=== PATIENT | female | born 1960 | race American Indian/Alaskan Native ===

== ENCOUNTER 2017-01-10 10:06 | Outpatient (CLI) | payer BC ==
--- NOTE | 2017-01-10 15:32 | Mammography Report ---
BILATERAL DIGITAL SCREENING MAMMOGRAM with CAD: 01/10/17 10:06:00 CLINICAL: Routine screening. COMPARISON:12/29/15 FINDINGS: There are scattered areas of fibroglandular density.An oval mixed density smooth right upper outer mass measures 6.4 cm maximum diameter and is not changed significantly compared to the prior exam. It has a large fatty component which is typical of a benign hamartoma. No new mass, architectural distortion or suspicious calcifications. IMPRESSION: No mammographic evidence of malignancy. Right benign upper outer hamartoma. BI-RADS CATEGORY: 2 -- Benign RECOMMENDATION: Routine mammographic screening in one year. COMMENT: Patient follow-up letters are generated by our [employer] application.
== END 2017-01-10 10:07 | disposition home or self-care (01) ==
LOC: SPVWC 10:06
PROVIDERS: ATTEND Internal Medicine
DX: Z12.31 Encounter for screening mammogram for malignant neoplasm of breast (principal)
CPT/HCPCS: 77067; G0202

== ENCOUNTER 2018-01-16 08:16 | Outpatient (CLI) | payer BC ==
--- NOTE | 2018-01-17 08:21 | Mammography Report ---
BILATERAL DIGITAL SCREENING MAMMOGRAM with CAD: 01/16/18 08:16:00 CLINICAL: Routine screening. COMPARISON:01/10/17 FINDINGS: The breasts are almost entirely fatty.Stable right outer benign hamartoma measuring approximately 6 cm. No new mass, architectural distortion or suspicious calcifications. IMPRESSION: No mammographic evidence of malignancy. BI-RADS CATEGORY: 2 -- Benign RECOMMENDATION: Routine mammographic screening in one year. COMMENT: Patient follow-up letters are generated by our [employer] application.
== END 2018-01-16 08:17 | disposition home or self-care (01) ==
LOC: SPVWC 08:16
PROVIDERS: ATTEND Internal Medicine
DX: Z12.31 Encounter for screening mammogram for malignant neoplasm of breast (principal)
CPT/HCPCS: 77067